=== PATIENT | female | born 1990 | race American Indian/Alaskan Native ===

== ENCOUNTER 2022-01-22 14:28 | Emergency (ER) | payer MEDICAID ==
[2022-01-22] MEDS ORDERED: ONDANSETRON 4 MG ODT TAB PO ONE (21:08)
[2022-01-22] MEDS ORDERED: KETOROLAC 30 MG/1 ML INJ IM ONE (21:08)
[2022-01-22] MEDS ORDERED: dexAMETHasone 20 MG/5 ML VIAL IM ONE (21:08)
[2022-01-22] MEDS ORDERED: oxyCODONE /ACETAMINOPHEN 5-325MG TAB PO ONE (21:08)
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
[2022-01-22 22:09] VITALS: BP 132/87
== END 2022-01-22 22:10 | disposition home or self-care (01) ==
LOC: ED 14:28
DX: M54.12 Radiculopathy, cervical region (principal); M62.830 Muscle spasm of back
CPT/HCPCS: 96372; 99282; J1100; J1885; J3490; Q0162

== ENCOUNTER 2022-02-22 14:19 | Emergency (ER) | payer MEDICAID ==
[2022-02-22 20:47] VITALS: BP 124/78
[2022-02-22] MEDS ORDERED: HYDROcodone/ACETAMINOPHEN 5-325 MG TAB PO ONE (21:48)
[2022-02-22] MEDS ORDERED: IBUPROFEN 800 MG TAB PO ONE (21:48)
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
== END 2022-02-22 23:12 | disposition home or self-care (01) ==
LOC: ED 14:19
DX: M54.50 Low back pain, unspecified (principal); M54.2 Cervicalgia
CPT/HCPCS: 99282